=== PATIENT | male | born 1980 | race Caucasian/White ===

== ENCOUNTER 2019-02-19 07:45 | Day surgery (SDC) | payer MEDICARE ==
[2019-02-18 16:09] VITALS: BMI 29.9
--- NOTE | 2019-02-19 01:54 | HP ---
HISTORY OF PRESENT ILLNESS: This is a 38-year-old male, chronic acid reflux over the years. He has been having worsening symptoms over the last few months. The patient is [employer]. At the time his weight was 210 pounds. He has been gaining weight recently. His weight is up to 246 pounds. He has had worsening acid reflux with severe heart burn along with regurgitation off and on. He has no history of dysphagia. The patient is legally blind, because of retinitis pigmentosa. The patient comes to the ED, because of chronic and worsening acid reflux. ALLERGIES: NONE. SOCIAL HISTORY: The patient does not smoke or drink alcohol. MEDICAL ILLNESSES: 1. Retinitis pigmentosa, legally blind. 2. Hypertension. 3. Anxiety. 4. Vitamin D deficiency. 5. Depression. 6. Cataracts. PHYSICAL EXAMINATION: GENERAL: He is not obese. He is comfortable. VITAL SIGNS: Pulse is 73, blood pressure 140/100. Conjunctivae clear. NECK: Supple. No adenitis or thyromegaly. CARDIOVASCULAR SYSTEM: First and second heart sounds heard. LUNGS: Clear to auscultation. ABDOMEN: Soft. No organomegaly. No tenderness. No masses. ADMITTING DIAGNOSES: Worsening acid reflux with heartburn and also regurgitation. He has gained nearly about . Plan EGD. Job ID: [id number]
[2019-02-19] MEDS ORDERED: PHENYLEPHRINE-NS 100 MCG/ML 10 ML SYRINGE ONE (14:54)
[2019-02-19] MEDS ORDERED: Dexamethasone 20 MG/5 ML VIAL ONE (14:54)
[2019-02-19] MEDS ORDERED: Ondansetron PF 4 MG/2 ML Vial ONE (14:54)
[2019-02-19] MEDS ORDERED: Lidocaine 1% PF 5 ML VIAL ONE (14:54)
[2019-02-19] MEDS ORDERED: PROPOFOL 200 MG/20 ML VIAL ONE (14:54)
--- NOTE | 2019-02-20 08:34 | OP ---
DATE OF PROCEDURE: 02/19/2019 PROCEDURES PERFORMED: 1. Esophagogastroduodenoscopy with biopsy. 2. Esophageal dilation with a balloon size 15 to 18 mm stage 2. PREOPERATIVE DIAGNOSES: Worsening acid reflux, regurgitation. POSTOPERATIVE DIAGNOSES: 1. 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 2. A 2 cm size columnar epithelium about the strictured area. 3. Hiatus hernia. 4. Gastritis. DESCRIPTION OF PROCEDURE: The patient was placed on his left lateral position and was given sedation by Anesthesia Department. A Pentax videogastroscope under direct vision passed down the oropharynx across the GE junction into the stomach. The esophageal mucosa appears normal throughout. However, just at the GE junction, the patient had a ring-like esophageal stricture and about the ring, he has an island of columnar epithelium measuring approximately about 2 cm. Otherwise, the esophagus appeared normal. The stricture was not very tight and the scope could be advanced very easily into the stomach. He had a hiatus hernia. Retroflexion failed to show any pathology in the fundus or cardia. The patient had fairly large amount of bile in the stomach and during the procedure, it was found to be regurgitated and the scope has been removed because of regurgitation. The throat was suctioned out and the patient was intubated and was given sedation by Anesthesia Department. The scope was advanced back into stomach again. The patient had gastritis in the gastric antrum and gastric body. Biopsy obtained of the gastric antrum and gastric body. Also, biopsies were obtained from the island of columnar epithelium. The duodenal bulb and descending duodenum, no pathology seen. The scope was withdrawn back to the stomach. A Bard balloon size 15 to 18 mm placed over the GE junction under endoscopic guidance. The balloon was inflated to stage 1 for 2 minutes and then to stage 2 for 2 minutes and deflated. There was mild friability at the GE junction indicative of successful dilation. No complication noted. The stomach decompressed and the scope removed. RECOMMENDATION: Mr. Eliazar Lucero is a 38-year-old male seen for EGD for worsening acid reflux and regurgitation. The patient gained about 30 pounds over the last probably about 3 months. He underwent EGD and was found to have a distal esophageal ring-like stricture, hiatus hernia, and island of columnar epithelium. He underwent EGD with biopsy and dilation. DISCHARGE RECOMMENDATIONS: 1. Please see Medicines as before. 2. Weight loss stressed to the patient. 3. Increase Nexium 40 mg once a day and may try Zantac at bedtime. Job ID: [id number]
== END 2019-02-19 11:17 | disposition home or self-care (01) ==
LOC: SDC 07:45
PROVIDERS: ATTEND Internal Medicine Gastroenterology
PROC: 0DB58ZX Excision of Esophagus, Via Natural or Artificial Opening Endoscopic, Diagnostic (ICD-10-PCS; principal; 2019-02-19)
PROC: 0DB78ZX Excision of Stomach, Pylorus, Via Natural or Artificial Opening Endoscopic, Diagnostic (ICD-10-PCS; 2019-02-19)
PROC: 0D758ZZ Dilation of Esophagus, Via Natural or Artificial Opening Endoscopic (ICD-10-PCS; 2019-02-19)
DX: K29.50 Unspecified chronic gastritis without bleeding (principal); K22.70 Barrett's esophagus without dysplasia; K22.2 Esophageal obstruction; K44.9 Diaphragmatic hernia without obstruction or gangrene; K21.9 Gastro-esophageal reflux disease without esophagitis; H35.52 Pigmentary retinal dystrophy; H54.8 Legal blindness, as defined in USA; F41.9 Anxiety disorder, unspecified; I10 Essential (primary) hypertension; F32.9 Major depressive disorder, single episode, unspecified; E55.9 Vitamin D deficiency, unspecified; Z79.899 Other long term (current) drug therapy
CPT/HCPCS: 88305; 88312; 88313